=== PATIENT | female | born 1975 | race Hispanic/Latino ===

== ENCOUNTER 2017-12-03 13:28 | Observation (INO) | payer OTHER ==
[2017-12-03 14:02] LABS: Absolute Lymphocytes (CBC) 2.4 K/uL (0.7-4.9); Absolute Monocytes 0.7 K/uL (0.1-1.3); Absolute Neutrophil 7.2 K/uL (1.8-8.0); Basophils % 0.4 % (0-1.3); Eosinophils % 0.8 % (0-4.4); Lymphocytes % 23.3 % (15.3-44.8); MCH 29.7 pg (27.0-35.0); MPV 10.8 fL (7.6-11.3); Monocytes % 6.5 % (3.3-12.3); RBC Red Blood Cell Count 4.35 M/uL (3.86-4.86)
[2017-12-03] MEDS ORDERED: NITROGLYCERIN 1 GM PKT TD ONE (14:07)
[2017-12-03] MEDS ORDERED: ASPIRIN 81 MG CHEWABLE TABLET ONE (14:07)
[2017-12-03 14:10] LABS: Protime INR 1.03
[2017-12-03 14:15] LABS: Bicarbonate 26 mEq/L (21-31); Glucose Level 115 mg/dL (65-120); Potassium 3.3 mEq/L (3.6-5.0); Sodium Level 137 mEq/L (135-145)
--- NOTE | 2017-12-03 14:19 | RAD REPORT ---
EXAM DESCRIPTION: Fabiola Single View12/03/2017 2:13 pm CLINICAL HISTORY: Chest pain COMPARISON: January 2017 FINDINGS: The lungs appear clear of acute infiltrate. The heart is normal size IMPRESSION: No acute abnormalities displayed
[2017-12-03 14:21] LABS: ALT/SGPT 18 IU/L (10-60); AST/SGOT 21 IU/L (10-42); Albumin 4.5 g/dL (3.2-5.5); Alkaline Phosphatase 60 IU/L (42-121); BUN Blood Urea Nitrogen 14 mg/dL (6-20); Bilirubin Direct 0.1 mg/dL (0-0.2); Bilirubin Total 0.6 mg/dL (0.3-1.2); Creatine Phosphokinase 68 IU/L (22-269); Magnesium 1.9 mg/dL (1.8-2.5); Protein, Total 7.7 g/dL (6.0-8.3)
[2017-12-03] MEDS ORDERED: POTASSIUM CL SA 10 MEQ TAB PO ONE (15:25)
--- NOTE | 2017-12-03 15:30 | EKG ---
Test Date: 2017-12-03 Test Time: 14:05:04 Electric Detector Operator: ARACELI MEASUREMENT RESULTS: Intervals: Rate: 74 ND: 144 QRSD: 94 QT: 372 QTc: 412 [place]: P: 73 ND: 144 QRS: 57 T: 28 INTERPRETIVE STATEMENTS: Normal sinus rhythm T wave abnormality, consider anterior ischemia Abnormal ECG Compared to ECG 05/21/2013 12:16:53 Possible ischemia now present T-wave abnormality still present Electronically Signed On 12-03-17 15:29:56 CDT by Stanford Mcgee
--- NOTE | 2017-12-03 16:30 | ER ---
Nurse's Notes [facility] Name: Amie Reyna Age: 42 yrs Sex: Female : 1975 Arrival Date: 12/03/2017 Time: 13:29 Bed 15 Private MD: Jorge Duke C Diagnosis: Acute chest pain Presentation: 12/03 13:37 Presenting complaint: Patient states: my chest started hurting around 10 am today, its hj like a sharp, stabbing pain on my chest that moves to my L shoulder and arms; denies SOB, denies fever and chills;. Transition of care: patient was not received from another setting of care. Onset of symptoms was December 03, 2017 at 10:00. Care prior to arrival: None. 13:37 Method Of Arrival: Ambulatory hj 13:37 Acuity: FRENCH 3 hj Triage Assessment: 13:39 General: Appears in no apparent distress. uncomfortable, Behavior is calm, cooperative, hj appropriate for age. Pain: Complains of pain in chest Pain radiates to anterior aspect of left shoulder and left bicep Pain currently is 6 out of 10 on a pain scale. Quality of pain is described as sharp, stabbing, Pain began 3 hours ago. Cardiovascular: Capillary refill < 3 seconds Patient's skin is warm and dry. 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 - Social history:: Smoking status: Patient/guardian denies using tobacco, Patient/guardian denies using alcohol. Screenin:39 Abuse screen: Denies threats or abuse. Denies injuries from another. Nutritional hj screening: No deficits noted. Tuberculosis screening: No symptoms or risk factors identified. Fall Risk None identified. Assessment: 14:30 General: Appears in no apparent distress. comfortable, Behavior is calm, cooperative, aj1 appropriate for age. Pain: Complains of pain in chest Pain radiates to left arm and anterior aspect of left shoulder Pain currently is 6 out of 10 on a pain scale. Quality of pain is described as sharp, stabbing, Pain began at 10:00 this morning. Neuro: Level of Consciousness is awake, alert, obeys commands, Oriented to person, place, time, situation, Speech is normal, Facial symmetry appears normal. Cardiovascular: Heart tones S1 S2 present Patient's skin is warm and dry. Rhythm is regular Chest pain is described as Pain is 6 out of 10 on a pain scale. quality is sharp, stabbing, is located in chest wall. Respiratory: Airway is patent Respiratory effort is even, unlabored, Respiratory pattern is regular, symmetrical, Breath sounds are clear bilaterally. GI: No signs and/or symptoms were reported involving the gastrointestinal system. : No signs and/or symptoms were reported regarding the genitourinary system. EENT: No signs and/or symptoms were reported regarding the EENT system. Derm: No signs and/or symptoms reported regarding the dermatologic system. Skin is pink, warm \T\ dry. normal. Musculoskeletal: No signs and/or symptoms reported regarding the musculoskeletal system. Circulation, motion, and sensation intact. 15:14 Reassessment: Patient appears in no apparent distress at this time. No changes from aj1 previously documented assessment. Patient and/or family updated on plan of care and expected duration. Pain level reassessed. Patient is alert, oriented x 3, equal unlabored respirations, skin warm/dry/pink. 16:15 Reassessment: Patient appears in no apparent distress at this time. No changes from aj1 previously documented assessment. Patient and/or family updated on plan of care and expected duration. Pain level reassessed. Patient is alert, oriented x 3, equal unlabored respirations, skin warm/dry/pink. 17:05 Reassessment: Patient appears in no apparent distress at this time. No changes from aj1 previously documented assessment. Patient and/or family updated on plan of care and expected duration. Pain level reassessed. Patient is alert, oriented x 3, equal unlabored respirations, skin warm/dry/pink. 18:34 Reassessment: Patient appears in no apparent distress at this time. No changes from aj1 previously documented assessment. Patient and/or family updated on plan of care and expected duration. Pain level reassessed. Patient is alert, oriented x 3, equal unlabored respirations, skin warm/dry/pink. 19:57 Reassessment: Patient and/or family updated on plan of care and expected duration. Pain aj1 level reassessed. Receiving nurse unable to take report per charge nurse, states receiving nurse will call back. General: Appears in no apparent distress. comfortable, Behavior is calm, cooperative, appropriate for age. Neuro: Level of Consciousness is awake, alert, obeys commands, Oriented to person, place, time, situation, Speech is normal, Facial symmetry appears normal. Cardiovascular: Patient's skin is warm and dry. Respiratory: Airway is patent Respiratory effort is even, unlabored, Respiratory pattern is regular, symmetrical. GI: No signs and/or symptoms were reported involving the gastrointestinal system. : No signs and/or symptoms were reported regarding the genitourinary system. Derm: No signs and/or symptoms reported regarding the dermatologic system. Skin is pink, warm \T\ dry. normal. Musculoskeletal: No signs and/or symptoms reported regarding the musculoskeletal system. Circulation, motion, and sensation intact. 20:38 Reassessment: Patient appears in no apparent distress at this time. No changes from aj1 previously documented assessment. Patient and/or family updated on plan of care and expected duration. Pain level reassessed. Patient is alert, oriented x 3, equal unlabored respirations, skin warm/dry/pink. Vital Signs: 13:40 BP 128 / 71; Pulse 73; Resp 18; Temp 98.5(O); Pulse Ox 100% on R/A; Weight 62.14 kg; hj Height 5 ft. 4 in. (162.56 cm); Pain 6/10; 14:30 BP 134 / 89; Pulse 91; Resp 18; Pulse Ox 100% ; aj1 15:14 BP 114 / 64; Pulse 72; Resp 18; Pulse Ox 99% ; aj1 17:06 BP 122 / 67; Pulse 74; Resp 18; Pulse Ox 100% on R/A; aj1 19:57 BP 118 / 74; Pulse 76; Resp 18; Temp 98.1(O); Pulse Ox 100% on R/A; aj1 20:38 BP 109 / 74; Pulse 77; Resp 18; Pulse Ox 100% on R/A; aj1 13:40 Body Mass Index 23.52 (62.14 kg, 162.56 cm) ED Course: 13:29 Patient arrived in ED. as 13:29 Jorge Duke MD is Private Physician. as 13:36 Daryl Powell RN is Primary Nurse. hj 13:36 Eric Ortiz MD is Attending Physician. wa 13:38 Triage completed. hj 13:40 Arm band placed on right wrist. hj 13:40 Patient has correct armband on for positive identification. Bed in low position. Call hj light in reach. Side rails up X 1. Adult w/ patient. phototypesetting equipment monitor on. Pulse ox on. NIBP on. 13:40 Patient maintains SpO2 saturation greater than 95% on room air. hj 14:11 X-ray completed. Portable x-ray completed in exam room. Patient tolerated procedure la2 well. 14:12 XRAY Chest (1 view) In Process Unspecified. EDMS 14:22 EKG done, by central processing tech. reviewed by Eric Ortiz MD. at1 14:30 No provider procedures requiring assistance completed. aj1 15:30 Urine collected: clean catch specimen, blood tinged. formerly [facility], [facility] 16:29 Jorge Duke MD is Hospitalizing Provider. wa 19:00 Inserted saline lock: 20 gauge in left antecubital area, using aseptic technique. aj1 20:39 Patient admitted, IV remains in place. aj1 Administered Medications: 14:38 Drug: Aspirin Chewable Tablet 324 mg Route: PO; aj1 20:42 Follow up: Response: No adverse reaction aj1 14:38 Not Given (Patient Refused): Nitro-Bid Ointment 2 % 0.5 inches Transdermal once aj1 15:35 Drug: Potassium Chloride 40 mEq Route: PO; aj1 20:42 Follow up: Response: No adverse reaction aj1 Outcome: 16:30 Decision to Hospitalize by Provider. wa 20:39 Admitted to Tele accompanied by tech, via wheelchair, Report called to Lily aj1 20:39 Condition: good 20:39 Discharge instructions given to patient, Instructed on the need for admit, Demonstrated understanding of instructions. 21:04 Patient left the ED. aj1 Signatures: Dispatcher [employer] EDMS Kerry Beltran, RN RN Arcelia Hoffman Amanda, senior associate EKG Tat1 Daryl Powell, RN RN екатерина Muñoz, Irish dh3 Eric Ortiz MD MD mo Wendy Vargas la2
--- NOTE | 2017-12-03 16:30 | EDPHYS ---
Physician Documentation [facility] Name: Amie Reyna Age: 42 yrs Sex: Female : 1975 Arrival Date: 12/03/2017 Time: 13:29 Bed 15 Private MD: Jorge Duke C ED Physician Eric Ortiz HPI: 12/03 14:18 This 42 yrs old Female presents to ER via Ambulatory with complaints of Chest wa Pain, Arm Pain, Weakness. 14:18 The patient or guardian reports chest pain that is located primarily in the substernal wa area. Onset: this morning. The pain radiates to the left arm, left jaw. Associated signs and symptoms: Pertinent positives: dizziness, shortness of breath, feeling tired. 14:30 The chest pain is described as sharp. Duration: The patient or guardian reports wa multiple episodes, that wax and wane, with the last episode occurring 5 minute(s) ago. Modifying factors: The symptoms are alleviated by nothing. the symptoms are aggravated by nothing. Severity of pain: At its worst the pain was moderate in the emergency department the pain is unchanged. The patient has not experienced similar symptoms in the past. The patient has not recently seen a physician. 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 - Social history:: Smoking status: Patient/guardian denies using tobacco, Patient/guardian denies using alcohol. ROS: 14:30 Constitutional: Negative for fever, chills, and weight loss, Eyes: Negative for injury, wa pain, redness, and discharge, ENT: Negative for injury, pain, and discharge, Neck: Negative for injury, pain, and swelling, Abdomen/GI: Negative for abdominal pain, nausea, vomiting, diarrhea, and constipation, Back: Negative for injury and pain, : Negative for injury, bleeding, discharge, and swelling, MS/Extremity: Negative for injury and deformity, Skin: Negative for injury, rash, and discoloration, Neuro: Negative for headache, weakness, numbness, tingling, and seizure, Psych: Negative for depression, anxiety, suicide ideation, homicidal ideation, and hallucinations. 14:30 Cardiovascular: Positive for chest pain, Negative for edema, orthopnea, palpitations, paroxysmal nocturnal dyspnea. 14:30 Respiratory: Positive for shortness of breath, at rest. Negative for cough, pleurisy, wheezing. 14:30 All other systems are negative. Exam: 14:31 Constitutional: This is a well developed, well nourished patient who is awake, alert, wa and in no acute distress. Head/Face: Normocephalic, atraumatic. Eyes: Pupils equal round and reactive to light, extra-ocular motions intact. Lids and lashes normal. Conjunctiva and sclera are non-icteric and not injected. Cornea within normal limits. Periorbital areas with no swelling, redness, or edema. ENT: Nares patent. No nasal discharge, no septal abnormalities noted. Tympanic membranes are normal and external auditory canals are clear. Oropharynx with no redness, swelling, or masses, exudates, or evidence of obstruction, uvula midline. Mucous membranes moist. Neck: Trachea midline, no thyromegaly or masses palpated, and no cervical lymphadenopathy. Supple, full range of motion without nuchal rigidity, or vertebral point tenderness. No Meningismus. Chest/axilla: Normal chest wall appearance and motion. Nontender with no deformity. No lesions are appreciated. Abdomen/GI: Soft, non-tender, with normal bowel sounds. No distension or tympany. No guarding or rebound. No evidence of tenderness throughout. Back: No spinal tenderness. No costovertebral tenderness. Full range of motion. Skin: Warm, dry with normal turgor. Normal color with no rashes, no lesions, and no evidence of cellulitis. MS/ Extremity: Pulses equal, no cyanosis. Neurovascular intact. Full, normal range of motion. Neuro: Awake and alert, GCS 15, oriented to person, place, time, and situation. Cranial nerves II-XII grossly intact. Motor strength 5/5 in all extremities. Sensory grossly intact. Cerebellar exam normal. Normal gait. Psych: Awake, alert, with orientation to person, place and time. Behavior, mood, and affect are within normal limits. 14:31 Cardiovascular: Rate: normal, Rhythm: regular, Pulses: no pulse deficits are appreciated, Heart sounds: normal, Edema: is not appreciated, JVD: is not appreciated. Vital Signs: 13:40 BP 128 / 71; Pulse 73; Resp 18; Temp 98.5(O); Pulse Ox 100% on R/A; Weight 62.14 kg; hj Height 5 ft. 4 in. (162.56 cm); Pain 6/10; 14:30 BP 134 / 89; Pulse 91; Resp 18; Pulse Ox 100% ; aj1 15:14 BP 114 / 64; Pulse 72; Resp 18; Pulse Ox 99% ; aj1 17:06 BP 122 / 67; Pulse 74; Resp 18; Pulse Ox 100% on R/A; aj1 19:57 BP 118 / 74; Pulse 76; Resp 18; Temp 98.1(O); Pulse Ox 100% on R/A; aj1 20:38 BP 109 / 74; Pulse 77; Resp 18; Pulse Ox 100% on R/A; aj1 13:40 Body Mass Index 23.52 (62.14 kg, 162.56 cm) hj MDM: 13:36 Patient medically screened. ga 14:32 Differential diagnosis: acute myocardial infarction, anxiety, coronary artery disease wa congestive heart failure unstable angina. 15:12 Data reviewed: vital signs, nurses notes, lab test result(s), EKG, radiologic studies. ga Test interpretation: by ED physician or midlevel provider: EKG: HR 74. flipped T's noted in V1 and V2. no noted reciprocal changes. 15:25 Test interpretation: by ED physician or midlevel provider: nml CXR. nml labs, including ga troponin. 16:27 HEART Score: History: Highly Suspicious (2), ECG: Non specific repolarization wa disturbance / LBTB / PM (1), Age: < or = 45 years (0), Risk Factors: No Risk Factors Known (0), Troponin: < or = 1 x Normal Limit (0), Total Score =. Response to treatment: the patient's symptoms have markedly improved after treatment, pt improved with nitro and ASA. Physician consultation: A Srikanth LARRY. Admission orders: after a detailed discussion of the patient's condition and case, the admit orders are written by me. ED course: improved. concerning story with abnl EKG. will admit for obs and r/o ACS. 12/03 13:50 Order name: Basic Metabolic Panel; Complete Time: 14:23 12/03 13:50 Order name: CBC with Diff; Complete Time: 14:23 12/03 13:50 Order name: CPK; Complete Time: 14:23 12/03 13:50 Order name: LFT's; Complete Time: 14:23 12/03 13:50 Order name: Magnesium; Complete Time: 14:23 12/03 13:50 Order name: PT-INR; Complete Time: 14:23 12/03 13:50 Order name: Troponin (emerg Dept Use Only); Complete Time: 14:23 12/03 15:49 Order name: Urine Dipstick--Ancillary (enter results) ag 12/03 15:49 Order name: Urine --Ancillary (enter results) ag 12/03 18:20 Order name: Basic Metabolic Panel EDMS 12/03 18:20 Order name: Basic Metabolic Panel EDMS 12/03 18:20 Order name: CBC with Automated Diff EDMS 12/03 18:20 Order name: CBC with Automated Diff EDMS 12/03 18:20 Order name: Troponin I EDMS 12/03 13:50 Order name: Urine Test (obtain specimen); Complete Time: 15:35 12/03 13:50 Order name: XRAY Chest (1 view); Complete Time: 14:20 12/03 14:23 Interpretation: Abnormal. 12/03 13:50 Order name: EKG; Complete Time: 13:50 12/03 13:50 Order name: Cardiac monitoring; Complete Time: 13:58 12/03 13:50 Order name: EKG - Nurse/Tech; Complete Time: 15:35 12/03 13:50 Order name: IV Saline Lock; Complete Time: 20:43 12/03 13:50 Order name: Labs collected and sent; Complete Time: 13:58 12/03 18:20 Order name: EKG Electrocardiogram EDMS 12/03 18:20 Order name: EKG Electrocardiogram EDMS 12/03 18:20 Order name: EKG Electrocardiogram EDMS 12/03 18:20 Order name: EKG Electrocardiogram EDMS 12/03 18:20 Order name: Troponin I EDMS 12/03 18:20 Order name: Troponin I EDMS 12/03 13:50 Order name: O2 Per Protocol; Complete Time: 13:59 12/03 13:50 Order name: O2 Sat Monitoring; Complete Time: 13:59 ga 12/03 13:50 Order name: Urine Dipstick-Ancillary (obtain specimen); Complete Time: 15:35 Administered Medications: 14:38 Drug: Aspirin Chewable Tablet 324 mg Route: PO; aj 20:42 Follow up: Response: No adverse reaction aj 14:38 Not Given (Patient Refused): Nitro-Bid Ointment 2 % 0.5 inches Transdermal once aj 15:35 Drug: Potassium Chloride 40 mEq Route: PO; aj1 20:42 Follow up: Response: No adverse reaction aj Disposition: 12/03/17 16:30 Hospitalization ordered by Jorge Duke for Observation. Preliminary diagnosis is Acute chest pain. - Bed requested for Telemetry/MedSurg (observation). - Status is Observation. aj1 - Condition is Stable. - Problem is new. - Symptoms have improved. UTI on Admission? No Signatures: Dispatcher [employer] EDKerry Pablo RN RN [facility] Sofiya Matos RN RN Daryl Powell RN RN Eric Ortiz MD MD ga
[2017-12-03 16:32] LABS: Urine Blood 3+ (NEG); Urine Glucose NEGATIVE (NEG); Urine Protein NEGATIVE (NEG); Urine Specific Gravity 1.015 (1.005-1.030)
[2017-12-03] MEDS ORDERED: ACETAMINOPHEN 500 MG TAB PO PRN (18:19)
[2017-12-03 21:12] VITALS: BMI 23.3
[2017-12-03 21:59] VITALS: O2SAT 99
--- NOTE | 2017-12-04 03:22 | HP ---
Date of Admission: 12/03/2017 Chief Complaint: Chest pain. History Of Present Illness: This is a 42-year-old female patient, who has been under lot of stress, lately came into emergency room with complaints of chest pain. The patient was driving today. All o f a sudden, she started to have this intermittent chest pain in the left precordial region. The pain started to radiate to her left shoulder, associated with some tingling sensation of the finger and s he was feeling weak with this. After she came into the ER, she was evaluated and admitted to the [facility] under my service and I saw her in the emergency room. The patient had multiple episodes of thi s pain lasting for short time as she described. No fever, cough, cold, or congestion. No hemoptysis . No rash. No fall. No injury. I saw her in the emergency room. Her was present with her at bedside. Allergies: SHE IS LISTED ALLERGIC TO CODEINE. Medications: Does not take any medications at home. Review of Systems: Cardiovascular: As mentioned above. All other systems reviewed and negative. Past Medical History: Significant for hypothyroidism, impaired fasting glucose, fatigue, and general ized anxiety disorder. Past Surgical History: Tubal ligation and . Family History: Significant for hepatitis C and thyroid disorder. Social History: Negative for smoking or alcohol use. Physical Examination: Vital Signs: When she came into the emergency room, temperature 98.4, pulse 73, respiratory rate 18, blood pressure 128/71, oxygen saturation 100%. Height 5 feet 4 inches. Weight 136 pounds. General: Awake, alert, oriented, not in distress. HEENT: Head atraumatic, normocephalic. Conjunctivae nonerythematous. Sclerae white. Mouth, no thr ush or edema noted. Ears/Nose, no mass, lesion, discharge noted. Neck: Supple. No JVD, lymph nodes, bruit, thyromegaly noted. Lungs: Bilateral good equal air entry. Clear to auscultation. No rhonchi. No rales. Heart: Normal heart sounds, no murmur or gallop. Abdomen: Soft, bowel sounds normal. No guarding, rigidity, tenderness, mass, hepatosplenomegaly, dis tention, or bruit noted. Extremities: No leg edema. No calf tenderness. Skin: No rash, ulcer, cellulitis. Lymphatics: No lymph node enlargement in neck, supraclavicular, infraclavicular region. Neuro: No focal neurological deficit. Chest: Unremarkable. External Genitalia: Deferred. Rectal: Deferred. Laboratory Data: White count 10.4, hemoglobin 12.9, platelets 263. INR 1.03. Sodium 137, potassium 3.3 chloride 106, bicarb 26. BUN 14, creatinine 0.70, glucose 115. Liver function tests unremarkab le. Troponin less than 0.03. Urinalysis; 3+ blood, otherwise negative. Urine test negati ve. Diagnostic Data: Electrocardiogram; normal sinus rhythm, T-wave abnormality, consider anterior ische charlette. Chest x-ray, no acute abnormality. Impression: 1.Chest pain. 2.Hypokalemia. 3.Generalized anxiety disorder. 4.Hypothyroidism. Plan: We will admit the patient to hospital to telemetry for observation. Cardiac enzymes negative. Her pain is concerning enough that we will go ahead and order echocardiogram and stress test tomorr ow. I will see her tomorrow morning for followup. We will keep her on equipment monitor phototypesetting, get a TSH, B12, and folic acid level. I did prescribe her duloxetine from the office from the office earlier t his year and she says she stopped taking it because of side effect, so if cardiac workup comes back n egative, she is willing to try some other medication for anxiety and stress. We will consider medication like paroxetine. ARANZA/MODL Voice ID: [id number]
[2017-12-04 04:26] LABS: Absolute Lymphocytes (CBC) 2.9 K/uL (0.7-4.9); Absolute Monocytes 0.9 K/uL (0.1-1.3); Absolute Neutrophil 4.5 K/uL (1.8-8.0); Basophils % 0.2 % (0-1.3); Eosinophils % 1.3 % (0-4.4); Hematocrit 36.8 % (36.0-45.0); Lymphocytes % 34.8 % (15.3-44.8); MCH 30.2 pg (27.0-35.0); MCV 92.4 fL (80-100); MPV 11.2 fL (7.6-11.3); Monocytes % 10.5 % (3.3-12.3); RBC Red Blood Cell Count 3.98 M/uL (3.86-4.86)
[2017-12-04 05:08] LABS: BUN Blood Urea Nitrogen 15 mg/dL (6-20); Glucose Level 99 mg/dL (65-120); Thyroid Stimulating Hormone 3.86 uIU/mL (0.34-5.60)
[2017-12-04 05:20] LABS: Bicarbonate 24 mEq/L (21-31); Potassium 4.1 mEq/L (3.6-5.0); Sodium Level 138 mEq/L (135-145)
[2017-12-04] MEDS ORDERED: REGADENOSON 0.4 MG/5 ML SYR IV ONE (07:25)
[2017-12-04 08:25] VITALS: BP 95/62; TEMP 97.6
[2017-12-04] MEDS ORDERED: ASPIRIN EC 81 MG TAB PO SCH (09:00)
--- NOTE | 2017-12-04 12:25 | ECHO ---
HEIGHT: 5 ft 4 in WEIGHT: 136 lb 0 oz DATE OF STUDY: 12/04/[address]: Rey Duke MD 2-DIMENSIONAL: YES M.MODE: YES DOPPLER: YES COLOR FLOW: YES TDS: PORTABLE: DEFINITY: BUBBLE STUDY: DIAGNOSIS: CHEST PAIN CARDIAC HISTORY: CATHERIZATION: NO SURGERY: NO PROSTHETIC VALVE: NO PACEMAKER: NO MEASUREMENTS (cm) DIASTOLIC (NORMALS) SYSTOLIC (NORMALS) IVSd 0.7 (0.6-1.2) LA Diam 2.2 (1.9-4.0) LVEF 74% LVIDd 4.2 (3.5-5.7) LVIDs 2.4 (2.0-3.5) %FS 42% LVPWd 0.6 (0.6-1.2) Ao Diam 2.2 (2.0-3.7) 2 DIMENSIONAL ASSESSMENT: RIGHT ATRIUM: NORMAL LEFT ATRIUM: NORMAL RIGHT VENTRICLE: NORMAL LEFT VENTRICLE: NORMAL TRICUSPID VALVE: NORMAL MITRAL VALVE: NORMAL PULMONIC VALVE: NORMAL AORTIC VALVE: NORMAL PERICARDIAL EFFUSION: NONE AORTIC ROOT: NORMAL LEFT VENTRICULAR WALL MOTION: NORMAL DOPPLER/COLOR FLOW: NORMAL COMMENTS: NORMAL 2-DIMENSIONAL ECHOCARDIOGRAM WITH DOPPLER. TECHNOLOGIST: KENNETH TUCKER
--- NOTE | 2017-12-04 12:35 | TREADPHA ---
DX: CHEST PAIN Date of Study: 12/04/2017 Ht: 5' 4 " Wt: 136 lb 0 oz Consulting Physician: PRABHA MEDICATIONS: TYLENOL, ASPIRIN HISTORY: 42 YEAR OLD WITH COMPLAINTS OF CHEST PAIN MEDICAL HISTORY: NONE PHYSICIAL EXAMINATION: RESTING B.P.: 114/80 RESTING H.R.: 77 RESTING EKG: SINUS, BORDERLINE VOLTAGE FOR LEFT VENTRICULAR HYPERTROPHY. NON-SPECIFIC T WAVE ABNORMALITY. PROTOCOL: LEXISCAN EXERCISE TIME: 3:30 B.P. AT PEAK STRESS: 118/68 IMPRESSION: LEXISCAN INJECTION FRACTION. CARDIOLITE INJECTED PER PROTOCOL. SEE NUCLEAR MEDICINE REPORT. NO VENTRICULAR TACHYCARDIA. NO SUPRAVENTRICUALR TACHYCARDIA. NO PREMATURE VENTRICULAR COMPLEXES. NO CHEST PAIN. NON-DIAGNOSTIC ELECTROCARDIAGRAM WITH LEXISCAN STRESS.
--- NOTE | 2017-12-04 13:13 | RAD REPORT ---
EXAM DESCRIPTION: NM - Rest Stress Cardiac Imaging - 12/04/2017 12:53 pm CLINICAL HISTORY: Chest pain COMPARISON: None. TECHNIQUE: The patient was administered 10.7 mCi of Tc 99m Sestamibi prior to resting SPECT imaging of the heart. The patient was then administered 27.7 mCi of Tc 99m Sestamibi following exercise or ph armacologic stress. Multiplanar SPECT images were reviewed. FINDINGS: The end diastolic volume is 49 ml, the end systolic volume is 14 ml, and the ejection frac tion is 71 %. Physiologic distribution of the radiopharmaceutical through the myocardium is noted. No stress induce d ischemic defect is seen to suggest stress induced ischemia. No fixed defect is seen to suggest hibe rnating myocardium or scarred myocardium. IMPRESSION: No stress induced ischemia or other suspicious findings. Ventricular volumes and ejection fraction are normal range.
--- NOTE | 2017-12-05 01:11 | DS ---
Date of Discharge: 12/04/2017 Disposition: Discharged to go home. Physical Examination: HEENT: Unremarkable. Lungs: Clear to auscultation. Heart: Sounds normal. Abdomen: Soft, bowel sounds normal. No guarding, rigidity, tenderness, or distention. Extremities: No leg edema. Discharge Medications And Instructions: Start taking paroxetine 10 mg p.o. daily. Followup: She will follow up at my office in 1 month. Hospital Course: A 42-year-old pleasant female patient, admitted to the hospital with complaints of chest pain. Please see dictated H and P for more information. After the patient was evaluated in the ER, she was admitted to the hospital. She had pain in her lef t precordial region radiating to her left arm and left shoulder. This started yesterday while she wa s driving. After she was evaluated, she was admitted to the hospital. Her CBC and chemistry were un remarkable. Cardiac enzymes remained negative. ND was ruled out. She had an echocardiogram done to day which was normal. Lexiscan stress test came back negative for stress-induced ischemia. This mor betty when I saw her, she was feeling better. Had no complaints. No chest pain. The patient has bee n under lot of stress and we did talk about trying some medication. She was prescribed duloxetine li ttle over a month ago. She stopped taking it because she had side effect of nausea and dizziness, bu t she is willing to try something else to help deal with her stress. We will try paroxetine and see how she tolerates. She was advised to take it in the morning with breakfast. Final Diagnoses: 1.Chest pain. 2.Hypokalemia. 3.Generalized anxiety disorder. 4.Hypothyroidism. ARANZA/MODL Voice ID: [id number] Report ID: [id number]
== END 2017-12-04 14:26 | disposition home or self-care (01) ==
LOC: ER 13:28 → ERHOLD 18:18 → 4TH 20:39
PROVIDERS: ADMIT Internal Medicine; ATTEND Internal Medicine
DX: R07.9 Chest pain, unspecified (principal); E87.6 Hypokalemia; E03.9 Hypothyroidism, unspecified; F41.1 Generalized anxiety disorder
CPT/HCPCS: 36415; 71045; 78452; 80048; 80076; 81003; 81025; 82550; 82607; 82746; 83735; 84443; 84484; 85025; 85610; 93005; 93017; 93306; 99285; A9500; G0378; J2785

== ENCOUNTER 2019-01-15 18:33 | Emergency (ER) | payer OTHER ==
[2019-01-15 19:18] LABS: Absolute Lymphocytes (CBC) 2.8 K/uL (0.7-4.9); Absolute Monocytes 0.9 K/uL (0.1-1.3); Absolute Neutrophil 3.9 K/uL (1.8-8.0); Basophils % 0.3 % (0-1.3); Eosinophils % 1.6 % (0-4.4); Lymphocytes % 36.3 % (15.3-44.8); MPV 10.8 fL (7.6-11.3); RBC Red Blood Cell Count 4.06 M/uL (3.86-4.86)
[2019-01-15 19:19] LABS: Protime INR 1.01
--- NOTE | 2019-01-15 19:26 | RAD REPORT ---
EXAM DESCRIPTION: RAD - Chest Single View - 01/15/2019 7:17 pm CLINICAL HISTORY: CHEST PAIN Chest pain. COMPARISON: Chest Single View dated 12/03/2017; Chest Pa And Lat (2 Views) dated 02/07/2017; CHEST SIN GLE VIEW dated 05/21/2013; CHEST PA AND LAT 2 VIEW dated 06/08/2000 FINDINGS: Portable technique limits examination quality. The lungs are grossly clear. The heart is normal in size. No displaced fractures. IMPRESSION: No acute intrathoracic process suspected.
[2019-01-15] MEDS ORDERED: KETOROLAC 30 MG/ML INJ ONE (19:27)
[2019-01-15] MEDS ORDERED: ASPIRIN 81 MG CHEWABLE TABLET ONE (19:27)
[2019-01-15] MEDS ORDERED: NA CHLORIDE 0.9% 1,000 ML ONE (19:28)
[2019-01-15] MEDS ORDERED: FAMOTIDINE 20 MG/2 ML VIAL IV ONE (19:28)
[2019-01-15 19:36] LABS: ALT/SGPT 24 U/L (12-78); AST/SGOT 15 U/L (15-37); Albumin 3.8 g/dL (3.4-5.0); Alkaline Phosphatase 63 U/L (45-117); BUN Blood Urea Nitrogen 17 mg/dL (7-18); Bicarbonate 29 mmol/L (21-32); Bilirubin Direct < 0.1 mg/dL (0-0.2); Bilirubin Total 0.4 mg/dL (0.2-1.0); Glucose Level 94 mg/dL (74-106); Magnesium 2.3 mg/dL (1.8-2.4); NT PRO-BNP 14 pg/mL (<125); Potassium 3.8 mmol/L (3.5-5.1); Protein, Total 7.3 g/dL (6.4-8.2); Sodium Level 144 mmol/L (136-145); Troponin (Emerg Dept Use Only) < 0.02 ng/mL (0.0-0.045)
[2019-01-15 19:59] LABS: Urine Blood NEGATIVE (NEG); Urine Glucose NEGATIVE (NEG); Urine Protein TRACE (NEG); Urine pH 6.5 (5.0-7.0)
--- NOTE | 2019-01-15 22:28 | EDPHYS ---
Physician Documentation [facility] Name: Amie Reyna Age: 43 yrs Sex: Female : 1975 Arrival Date: 01/15/2019 Time: 18:36 Bed 16 Private MD: Rey Duke ED Physician Rao Ortiz HPI: 01/15 19:15 This 43 yrs old Female presents to ER via Ambulatory with complaints of Chest cp Pain. 19:15 The patient or guardian reports chest pain that is located primarily in the anterior cp chest wall, medial to left breast. 19:15 Onset: 3 day(s) ago. The pain does not radiate. Associated signs and symptoms: cp Pertinent negatives: abdominal pain, cough, diaphoresis, dizziness, headache, lower extremity pain, lower extremity swelling, recent travel, syncope. The chest pain is described as sharp. Duration: The patient or guardian reports multiple episodes, that wax and wane, with no pattern. 19:15 Modifying factors: the symptoms are aggravated by palpation of area. 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 - Social history:: Smoking status: Patient/guardian denies using tobacco. - Ebola Screening: : Patient denies exposure to infectious person Patient denies travel to an Ebola-affected area in the 21 days before illness onset. ROS: 19:20 Constitutional: Negative for body aches, chills, fever, poor PO intake. cp 19:20 Eyes: Negative for injury, pain, redness, and discharge. cp 19:20 ENT: Negative for drainage from ear(s), ear pain, sore throat, difficulty swallowing, difficulty handling secretions. 19:20 Cardiovascular: Positive for chest pain, Negative for edema, palpitations. 19:20 Respiratory: Negative for cough, shortness of breath, wheezing. 19:20 Abdomen/GI: Negative for abdominal pain, nausea, vomiting, and diarrhea. 19:20 Skin: Negative for cellulitis, rash. 19:20 Neuro: Negative for altered mental status, headache, weakness. 19:20 All other systems are negative. Exam: 19:11 ECG was reviewed by the Attending Physician. cp 19:25 Constitutional: The patient appears in no acute distress, alert, awake, cp non-diaphoretic, non-toxic, well developed, well nourished. 19:25 Head/Face: Normocephalic, atraumatic. cp 19:25 Eyes: Periorbital structures: appear normal, Conjunctiva: normal, no exudate, no injection, Sclera: no appreciated abnormality, Lids and lashes: appear normal, bilaterally. 19:25 ENT: External ear(s): are unremarkable, Nose: is normal, Mouth: Lips: moist, Oral mucosa: normal, moist, Posterior pharynx: is normal, airway is patent, no erythema, no exudate. 19:25 Neck: ROM/movement: is normal, is supple, without pain, no range of motions limitations, no nuchal rigidity. 19:25 Chest/axilla: Inspection: normal, Palpation: crepitus, is not appreciated, tenderness, that is moderate, of the medial aspect of chest to left breast, that partially reproduces the patient's complaints. 19:25 Cardiovascular: Rate: normal, Rhythm: regular, Pulses: Pulses are 2+ in right radial artery and left radial artery. Edema: is not appreciated, JVD: is not appreciated. 19:25 Respiratory: the patient does not display signs of respiratory distress, Respirations: labored breathing, is not present, accessory muscle usage, is absent, intercostal retractions, are absent, shallow respirations, are not present, splinting, is not noted, tachypnea, is not appreciated, Breath sounds: are clear throughout, no decreased breath sounds, no stridor, no wheezing. 19:25 Abdomen/GI: Inspection: abdomen appears normal, Bowel sounds: active, all quadrants, cp Palpation: abdomen is soft and non-tender. 19:25 Back: pain, is absent, ROM is normal. cp 19:25 Skin: cellulitis, is not appreciated, no rash present. 19:25 Neuro: Orientation: to person, place \T\ time. Mentation: is normal, Cerebellar function: is grossly normal, Motor: moves all fours, strength is normal, Sensation: is normal. 21:39 ECG was reviewed by the Attending Physician. cp Vital Signs: 18:42 Pulse 71; Resp 15; Temp 98.7(O); Pulse Ox 100% on R/A; Weight 63.5 kg; Height 5 ft. 4 ss in. (162.56 cm); Pain 6/10; 19:01 BP 109 / 65; tw2 19:10 BP 113 / 75; Pulse 69; Resp 14; Temp 98.6; Pulse Ox 99% on R/A; Pain 6/10; rr5 20:20 BP 116 / 70; Pulse 77; Resp 16; Temp 98.5; Pulse Ox 99% ; Pain 3/10; rr5 21:00 BP 107 / 67; Pulse 65; Resp 17; Pulse Ox 99% ; rr5 22:00 BP 110 / 63; Pulse 62; Resp 15; Pulse Ox 100% on R/A; rr5 22:40 BP 105 / 60; Pulse 60; Resp 16; Temp 98.3; Pulse Ox 99% on R/A; rr5 18:42 Body Mass Index 24.03 (63.50 kg, 162.56 cm) ss MDM: 18:55 Patient medically screened. cp 19:00 Differential diagnosis: abnormal EKG, acute myocardial infarction, acute pericarditis, cp chest wall pain, costochondritis, esophagitis, gastritis, pleurisy, pneumonia, pneumothorax, pulmonary embolus, stable angina, unstable angina. 22:20 The patient was given aspirin in the Emergency Department. cp 22:20 Data reviewed: vital signs, nurses notes, lab test result(s), EKG, radiologic studies, cp plain films. Test interpretation: by ED physician or midlevel provider: ECG, plain radiologic studies. 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 Response to treatment: the patient's symptoms have markedly improved after treatment, VSS. Pain improved with meds. Patient with HEART score of 0. Will discharge to home with outpatient cardiology f/u recommended. 01/15 18:57 Order name: Basic Metabolic Panel; Complete Time: 19:49 cp 01/15 19:48 Interpretation: Normal except: CL 109; GFR 80. cp 05/24 18:57 Order name: CBC with Diff; Complete Time: 19:49 cp 05/24 20:25 Interpretation: Normal except: RDW 16.5. cp 05/24 18:57 Order name: LFT's; Complete Time: 19:49 cp 05/24 18:57 Order name: Magnesium; Complete Time: 19:49 cp 05/24 18:57 Order name: NT PRO-BNP; Complete Time: 19:49 cp 05/24 18:57 Order name: PT-INR; Complete Time: 19:49 cp 05/24 18:57 Order name: Troponin (emerg Dept Use Only); Complete Time: 19:49 cp 05/24 19:49 Interpretation: Reviewed. cp 05/ 18:57 Order name: XRAY Chest (1 view); Complete Time: 19:49 cp 05/24 19:57 Order name: Urine Dipstick--Ancillary (enter results) ag4 / 19:57 Order name: Urine --Ancillary (enter results); Complete Time: 20:25 ag4 /24 21:25 Order name: Troponin (emerg Dept Use Only) cp 05/ 18:57 Order name: EKG; Complete Time: 18:57 cp 05/24 18:57 Order name: Cardiac monitoring; Complete Time: 18:57 cp 05/24 18:57 Order name: EKG - Nurse/Tech; Complete Time: 18:57 cp 05/24 18:57 Order name: IV Saline Lock; Complete Time: 19:45 cp 05/24 18:57 Order name: Labs collected and sent; Complete Time: 19:45 cp 05/24 18:57 Order name: O2 Per Protocol; Complete Time: 19:45 cp 05/24 18:57 Order name: O2 Sat Monitoring; Complete Time: 19:45 cp 05/24 19:09 Order name: Urine Dipstick-Ancillary (obtain specimen); Complete Time: 19:45 cp 05/24 19:09 Order name: Urine Test (obtain specimen); Complete Time: 19:45 cp 05/24 21:25 Order name: EKG - Nurse/Tech; Complete Time: 21:29 cp 05/24 21:25 Order name: EKG; Complete Time: 21:26 cp 05/24 21:25 Order name: Repeat Cardiac Enzymes at: 2145; Complete Time: 21:36 cp EC:11 Rate is 73 beats/min. Rhythm is regular. HI interval is normal. QRS interval is normal. cp QT interval is normal. T waves are Inverted in leads III, V3. Interpreted by me. Reviewed by me. 21:39 Rate is 67 beats/min. Rhythm is regular. HI interval is normal. QRS interval is normal. cp QT interval is normal. T waves are Inverted in lead III. Interpreted by me. Reviewed by me. Administered Medications: 19:10 Drug: Aspirin Chewable Tablet 324 mg Route: PO; rr5 20:15 Follow up: Response: No adverse reaction rr5 19:13 Drug: NS 0.9% 1000 ml Route: IV; Rate: 1 bolus; Site: left forearm; rr5 22:40 Follow up: Response: No adverse reaction; IV Status: Completed infusion; IV Intake: rr5 1000ml 19:15 Drug: Pepcid 20 mg Route: IVP; Site: left forearm; rr5 20:15 Follow up: Response: No adverse reaction rr5 19:44 Not Given (Patient Refused): TORadol - Ketorolac 15 mg IVP once rr5 Disposition: 01/15/19 22:26 Discharged to Home. Impression: Chest pain, unspecified. - Condition is Stable. - Discharge Instructions: Nonspecific Chest Pain, Aspirin and Your Heart. - Prescriptions for Ibuprofen 800 mg Oral Tablet - take 1 tablet by ORAL route every 8 hours As needed take with food; 30 tablet. Pepcid 20 mg Oral Tablet - take 1 tablet by ORAL route every 12 hours for 10 days; 20 tablet. - Medication Reconciliation Form, Thank You Letter, Antibiotic Education, Prescription Opioid Use form. - Follow up: Stanford Mcgee MD; When: 2 - 3 days; Reason: chest pain. - Problem is new. - Symptoms have improved. Addendum: 01/19/2019 08:45 Co-signature as Attending Physician, Rao Ortiz MD I agree with the assessment and c [place] plan of care. Signatures: Dispatcher [employer] Rao Feng MD MD cha Smirch, Shelby, RN RN Rao Jackson PA PA cp Roque, Raymond RN RN rr5 Corrections: (The following items were deleted from the chart) 01/15 22:44 22:26 01/15/2019 22:26 Discharged to Home. Impression: Chest pain, unspecified. rr5 Condition is Stable. Forms are Medication Reconciliation Form, Thank You Letter, Antibiotic Education, Prescription Opioid Use. Follow up: Stanford Mcgee; When: 2 - 3 days; Reason: chest pain. Problem is new. Symptoms have improved. cp
--- NOTE | 2019-01-15 22:28 | ER ---
Nurse's Notes [facility] Name: Amie Reyna Age: 43 yrs Sex: Female : 1975 Arrival Date: 01/15/2019 Time: 18:36 Bed 16 Private MD: Rey Duke Diagnosis: Chest pain, unspecified Presentation: 01/15 18:41 Presenting complaint: Patient states: intermittent CP x 2-3 days. Transition of care: ss patient was not received from another setting of care. Onset of symptoms was January 12, 2019. Risk Assessment: Do you want to hurt yourself or someone else? Patient reports no desire to harm self or others. Initial Sepsis Screen: Does the patient meet any 2 criteria? No. Patient's initial sepsis screen is negative. Does the patient have a suspected source of infection? No. Patient's initial sepsis screen is negative. Care prior to arrival: None. 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 - Social history:: Smoking status: Patient/guardian denies using tobacco. - Ebola Screening: : Patient denies exposure to infectious person Patient denies travel to an Ebola-affected area in the 21 days before illness onset. Screenin:01 Abuse screen: Denies threats or abuse. Nutritional screening: No deficits noted. tw2 Tuberculosis screening: No symptoms or risk factors identified. Fall Risk None identified. Assessment: 19:05 General: Appears in no apparent distress. comfortable, Behavior is calm, cooperative, rr5 agitated. Pain: Complains of pain in chest Pain does not radiate. Pain currently is 6 out of 10 on a pain scale. Quality of pain is described as sharp, Pain began gradually, Is intermittent. Neuro: Level of Consciousness is awake, alert, obeys commands, Oriented to person, place, time, situation, Appropriate for age. Cardiovascular: Reports chest pain, Capillary refill < 3 seconds Patient's skin is warm and dry. Respiratory: Airway is patent Respiratory effort is even, unlabored, Respiratory pattern is regular, symmetrical. GI: No signs and/or symptoms were reported involving the gastrointestinal system. : No signs and/or symptoms were reported regarding the genitourinary system. EENT: No signs and/or symptoms were reported regarding the EENT system. Derm: Skin is intact, Skin temperature is warm. Musculoskeletal: Circulation, motion, and sensation intact. Capillary refill < 3 seconds. 19:10 Reassessment: patient refused for pain medication. ED provider aware. rr5 20:20 Reassessment: Patient appears in no apparent distress at this time. Patient is alert, rr5 oriented x 3, equal unlabored respirations, skin warm/dry/pink. Patient states feeling better. Patient states symptoms have improved. 21:35 Reassessment: Patient appears in no apparent distress at this time. Patient and/or rr5 family updated on plan of care and expected duration. Pain level reassessed. Patient is alert, oriented x 3, equal unlabored respirations, skin warm/dry/pink. awaiting for D dimer result. 22:40 Reassessment: Patient appears in no apparent distress at this time. Patient is alert, rr5 oriented x 3, equal unlabored respirations, skin warm/dry/pink. discharge instruction given and explained without complaints made. Patient states feeling better. Patient states symptoms have improved. Vital Signs: 18:42 Pulse 71; Resp 15; Temp 98.7(O); Pulse Ox 100% on R/A; Weight 63.5 kg; Height 5 ft. 4 ss in. (162.56 cm); Pain 6/10; 19:01 BP 109 / 65; tw2 19:10 BP 113 / 75; Pulse 69; Resp 14; Temp 98.6; Pulse Ox 99% on R/A; Pain 6/10; rr5 20:20 BP 116 / 70; Pulse 77; Resp 16; Temp 98.5; Pulse Ox 99% ; Pain 3/10; rr5 21:00 BP 107 / 67; Pulse 65; Resp 17; Pulse Ox 99% ; rr5 22:00 BP 110 / 63; Pulse 62; Resp 15; Pulse Ox 100% on R/A; rr5 22:40 BP 105 / 60; Pulse 60; Resp 16; Temp 98.3; Pulse Ox 99% on R/A; rr5 18:42 Body Mass Index 24.03 (63.50 kg, 162.56 cm) ED Course: 18:36 Patient arrived in ED. mr 18:37 Rey Duke MD is Private Physician. mr 18:41 Triage completed. ss 18:42 Arm band placed on right wrist. ss 18:48 EKG completed in triage. Results shown to MD. tw2 18:53 Rao Montero PA is PHCP. cp 18:53 Rao Ortiz MD is Attending Physician. cp 18:56 EKG done, by ED staff, reviewed by Rao COTTO. dh3 19:02 Bed in low position. Call light in reach. cafeteria monitor on. Pulse ox on. NIBP on. tw2 19:03 Patient maintains SpO2 saturation greater than 95% on room air. tw2 19:05 Inserted saline lock: 20 gauge in left forearm, using aseptic technique. Blood rr5 collected. 19:05 No provider procedures requiring assistance completed. Initial lab(s) drawn, by ut, rr5 sent to lab. 19:11 Santino Kuhn, JER is Primary Nurse. rr5 19:19 XRAY Chest (1 view) In Process Unspecified. EDMS 21:30 EKG done, by electrical controls technician. rr5 21:44 IV discontinued, Pressure dressing applied. jb5 21:45 Inserted saline lock: 22 gauge in right antecubital area, using aseptic technique. jb5 Blood collected. 22:25 Stanford Mcgee MD is Referral Physician. cp 22:40 IV discontinued, intact, bleeding controlled, No redness/swelling at site. Pressure rr5 dressing applied. Administered Medications: 19:10 Drug: Aspirin Chewable Tablet 324 mg Route: PO; rr5 20:15 Follow up: Response: No adverse reaction rr5 19:13 Drug: NS 0.9% 1000 ml Route: IV; Rate: 1 bolus; Site: left forearm; rr5 22:40 Follow up: Response: No adverse reaction; IV Status: Completed infusion; IV Intake: rr5 1000ml 19:15 Drug: Pepcid 20 mg Route: IVP; Site: left forearm; rr5 20:15 Follow up: Response: No adverse reaction rr5 19:44 Not Given (Patient Refused): TORadol - Ketorolac 15 mg IVP once rr5 Intake: 22:40 IV: 1000ml; Total: 1000ml. rr5 Outcome: 22:26 Discharge ordered by . cp 22:40 Discharged to home ambulatory. rr5 22:40 Condition: stable 22:40 Discharge instructions given to patient, Instructed on discharge instructions, follow up and referral plans. Demonstrated understanding of instructions, follow-up care. 22:40 Prescriptions given X 2. rr5 22:44 Patient left the ED. rr5 Signatures: Dispatcher [employer] EDIA Andria Vilchis mr AlekViktoria, RN RN ss Rao Montero PA PA Liv Aldana RN RN tw2 Anai Lugo 5 Irish Muñoz 3 Santino Kuhn RN RN rr5 Corrections: (The following items were deleted from the chart) 23:09 22:40 Discharged to home ambulatory, credit or loans officer rr5 rr5
[2019-01-15 23:15] VITALS: TEMP 98.5
[2019-01-15 23:18] VITALS: BP 110/63; O2SAT 100
--- NOTE | 2019-01-16 08:11 | EKG ---
Test Date: 2019-01-15 Test Time: 21:34:34 Lead Injection Mold Technician: MARSHALL MEASUREMENT RESULTS: Intervals: Rate: 67 GA: 182 QRSD: 92 QT: 378 QTc: 399 [place]: P: 69 GA: 182 QRS: 41 T: 14 INTERPRETIVE STATEMENTS: Normal sinus rhythm RSR' or QR pattern in V1 suggests right ventricular conduction delay Borderline ECG Compared to ECG 01/15/2019 18:52:01 T-wave abnormality no longer present Electronically Signed On 01-16-19 08:10:06 CDT by Abhijit Martinez
--- NOTE | 2019-01-16 08:12 | EKG ---
Test Date: 2019-01-15 Test Time: 18:52:01 Insulator Cutter And Former: JAIME MEASUREMENT RESULTS: Intervals: Rate: 73 FL: 164 QRSD: 94 QT: 370 QTc: 407 [place]: P: 74 FL: 164 QRS: 59 T: 15 INTERPRETIVE STATEMENTS: Normal sinus rhythm RSR' or QR pattern in V1 suggests right ventricular conduction delay Nonspecific T wave abnormality Abnormal ECG Compared to ECG 12/03/2017 14:05:04 RSR' in V1 or V2 now present Possible ischemia no longer present T-wave abnormality still present Electronically Signed On 01-16-19 08:10:20 CDT by Abhijit Martinez
== END 2019-01-15 22:44 | disposition home or self-care (01) ==
LOC: ER 18:33
DX: R07.9 Chest pain, unspecified (principal); Z88.5 Allergy status to narcotic agent
CPT/HCPCS: 36415; 71045; 80048; 80076; 81003; 81025; 83735; 83880; 84484; 85025; 85610; 93005; 96361; 96374; 99285; J7030

== ENCOUNTER 2020-02-29 16:00 | Observation (INO) | payer OTHER ==
[2020-02-29 16:19] VITALS: BMI 26.4
[2020-02-29 17:21] LABS: Absolute Lymphocytes (CBC) 2.7 K/uL (0.7-4.9); Basophils % 0.5 % (0-1.3); Hematocrit 40.1 % (36.0-45.0); Lymphocytes % 26.4 % (15.3-44.8); MPV 10.3 fL (7.6-11.3); RBC Red Blood Cell Count 4.42 M/uL (3.86-4.86)
[2020-02-29 17:33] LABS: ALT/SGPT 27 U/L (12-78); AST/SGOT 19 U/L (15-37); Albumin 3.7 g/dL (3.4-5.0); Alkaline Phosphatase 75 U/L (45-117); BUN Blood Urea Nitrogen 14 mg/dL (7-18); Bicarbonate 25 mmol/L (21-32); Bilirubin Total 0.3 mg/dL (0.2-1.0); CKMB Creatine Kinase MB < 1.0 ng/mL (0.3-3.6); Creatine Phosphokinase 65 U/L (26-192); Glucose Level 91 mg/dL (74-106); Potassium 3.6 mmol/L (3.5-5.1); Protein, Total 7.6 g/dL (6.4-8.2); Sodium Level 141 mmol/L (136-145); Thyroid Stimulating Hormone 0.629 uIU/mL (0.360-3.740); Troponin I < 0.02 ng/mL (0.0-0.045)
--- NOTE | 2020-02-29 21:40 | RAD REPORT ---
EXAM DESCRIPTION: Fabiola Ward (2 Views)02/29/2020 9:10 pm CLINICAL HISTORY: Chest pain COMPARISON: 2019 FINDINGS: The lungs appear clear of acute infiltrate. The heart is normal size IMPRESSION: No acute abnormalities displayed
--- NOTE | 2020-02-29 23:19 | HP ---
Date of Admission: 02/29/2020 Chief Complaint: Chest pain and right arm pain. History Of Present Illness: This is a 45-year-old female patient who was doing fine in her normal usual state of health until a week ago. 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 Denies any cough or fever. As of last week on Friday, she started to have tiredness, feeling like heaviness, tightness feeling in her chest in the right parasternal region and some pain in her right arm. Her chest pain happened couple of times once yesterday and once on Friday other time she describes as some uncomfortable feeling in her chest. Last night, she says that she had hard time catching her breath. Her pain in her right arm is constant. Denies any fall or injury. Denies any neck pain. No rash. After I visited her on tele-visit today, decision was made to admit her to hospital for further evaluation and management of this problem. Review of Systems: Cardiovascular: As mentioned above. Musculoskeletal: As mentioned above. All other systems reviewed and negative. Medications: She does not take any medication. Allergies: NO KNOWN ALLERGIES. Past Medical History: Significant for hypothyroidism. Past Surgical History: and tubal ligation. Family History: Significant for brother with thyroid disease. Social History: Negative for smoking and alcohol use. Physical Examination: Vital Signs: Height 5 feet, 4 inches, weight 154 pounds, temperature 98.6, pulse 87, respiratory rate 18, blood pressure 112/59, oxygen saturation 98%. General: Awake, alert, oriented, not in distress. HEENT: Head atraumatic, normocephalic. Conjunctivae nonerythematous. Sclerae white. Mouth, no thrush or edema noted. Ears/Nose, no mass, lesion, discharge noted. Neck: Supple. No JVD, lymph nodes, bruit, thyromegaly noted. Lungs: Bilateral good equal air entry. Clear to auscultation. No rhonchi. No rales. Heart: Normal heart sounds, no murmur or gallop. Abdomen: Soft, bowel sounds normal. No guarding, rigidity, tenderness, mass, hepatosplenomegaly, distention, or bruit noted. Extremities: No leg edema. No calf tenderness. Skin: No rash, ulcer, cellulitis. Lymphatics: No lymph node enlargement in neck, supraclavicular, infraclavicular region. Neuro: No focal neurological deficit. Chest: Unremarkable. External Genitalia: Deferred. Rectal: Deferred. Laboratory Data: Chest x-ray no acute abnormality, sodium 141, potassium 3.6, chloride 108, bicarb 25, glucose 91, BUN 14, creatinine 0.72, liver function tests unremarkable, WBC 10.1, hemoglobin 13.2, platelets 275. Impression: Chest pain. Plan: Admit the patient to hospital for observation on telemetry. We will get cardiac enzymes per order. We will get echocardiogram and Lexiscan stress test tomorrow and details and plan of treatment discussed with the patient. COVID-19 test will be done today. ARANZA/PAKO Voice ID: [id number] MTDD
[2020-03-01] MEDS ORDERED: REGADENOSON 0.4 MG/5 ML SYR IV ONE (08:24)
[2020-03-01 08:49] LABS: HDL Cholesterol 46 mg/dL (40-60); LDL Cholesterol, Calculated 95 (<130); Troponin I < 0.02 ng/mL (0.0-0.045)
--- NOTE | 2020-03-01 11:39 | RAD REPORT ---
EXAM DESCRIPTION: NM - Rest Stress Cardiac Imaging - 03/01/2020 9:59 am CLINICAL HISTORY: Chest pain. COMPARISON: 2017 TECHNIQUE: The patient was administered 10.6 mCi of Tc 99m Sestamibi prior to resting SPECT imaging of the heart. The patient was then administered approximately 30.8 mCi of Tc 99m Sestamibi following exercise or pharmacologic stress. Multiplanar SPECT images were reviewed. FINDINGS: There is uniformity of radiotracer uptake involving the entire left ventricular myocardiu m on rest and stress images. The left ventricular ejection fraction equals 70% IMPRESSION: Negative for a myocardial perfusion defect
[2020-03-01 11:53] VITALS: BP 109/66; TEMP 97.4
--- NOTE | 2020-03-01 23:46 | DS ---
Date of Discharge: 03/01/2020 Disposition: Discharged to go home. Discharge Medications And Instructions: Motrin 400 mg 3 times a day with food for 1 week. Final Diagnosis: Chest pain. Physical Examination: HEENT: Unremarkable. Lungs: Clear to auscultation. Heart: Heart sounds normal. Abdomen: Soft, bowel sounds normal. No guarding, rigidity, tenderness, or distention. Extremities: No leg edema. Hospital Course: This is a 45-year-old female patient admitted to the hospital with complaints of ch est pain and right arm pain. Please see dictated H and P for more information. Patient was admitted to the hospital. After she was admitted, serial cardiac enzymes obtained remained negative. Her ro utine blood work was unremarkable. EKG did not show any acute changes. Chest x-ray was unremarkable . This morning, the patient had Lexiscan stress test done, which came back negative for any stress-i nduced ischemia. Echocardiogram was done result pending and I will follow this on outpatient basis. The patient, this morning, was feeling better. She still had some right arm pain and right paraster nal pain, but overall it was better compared to yesterday and no new complaints reported this morning , so patient was discharged to go home in stable condition. It is likely that her right-sided chest pain is musculoskeletal in origin and we will see how she responds to Motr in. ARANZA/MODL Voice ID: [id number] Report ID: [id number]
--- NOTE | 2020-03-02 08:42 | ECHO ---
HEIGHT: 5 ft 4 in WEIGHT: 154 lb 0 oz DATE OF STUDY: 03/01/[address]: Rey Duke MD 2-DIMENSIONAL: YES M.MODE: YES DOPPLER: YES COLOR FLOW: YES TDS: NO PORTABLE: NO DEFINITY: NO BUBBLE STUDY: NO DIAGNOSIS: CHEST PAIN CARDIAC HISTORY: CATHERIZATION: NO SURGERY: NO PROSTHETIC VALVE: NO PACEMAKER: NO MEASUREMENTS (cm) DIASTOLIC (NORMALS) SYSTOLIC (NORMALS) IVSd 0.9 (0.6-1.2) LA Diam 2.7 (1.9-4.0) LVEF 69% LVIDd 4.0 (3.5-5.7) LVIDs 2.4 (2.0-3.5) %FS 38% LVPWd 0.9 (0.6-1.2) Ao Diam 2.2 (2.0-3.7) 2 DIMENSIONAL ASSESSMENT: RIGHT ATRIUM: NORMAL LEFT ATRIUM: NORMAL RIGHT VENTRICLE: NORMAL LEFT VENTRICLE: NORMAL TRICUSPID VALVE: NORMAL MITRAL VALVE: NORMAL PULMONIC VALVE: NORMAL AORTIC VALVE: NORMAL PERICARDIAL EFFUSION: NONE AORTIC ROOT: NORMAL LEFT VENTRICULAR WALL MOTION: NORMAL DOPPLER/COLOR FLOW: NORMAL COMMENTS: NORMAL 2D ECHOCARDIOGRAM WITH DOPPLER. NO WALL MOTION ABNORMALITY. TECHNOLOGIST: Abrahan MARTINEZ
--- NOTE | 2020-03-02 08:56 | TREADPHA ---
DX: CHEST PAIN Date of Study: 03/01/2020 Ht: 5' 4 " Wt: 154 lb 0 oz Consulting Physician: PRABHA MEDICATIONS: N/A HISTORY: 45 YEAR OLD FEMALE WITH COMPLAINTS OF CHEST PAIN. NO MEDICAL HISTORY. PHYSICIAL EXAMINATION: RESTING B.P.: 108/66 RESTING H.R.: 79 RESTING EKG: NORMAL SINUS RHYTHM, NON SPECIFIC T WAVE ABNORMALITY. PROTOCOL: LEXISCAN EXERCISE TIME: 3:30 B.P. AT PEAK STRESS: 146/76 IMPRESSION: LEXISCAN INJECTED. CARDIOLITE INJECTED PER PROTOCOL. SEE NUCLEAR MEDICINE REPORT. NO VENTRICULAR TACHYCARDIA. NO SUPRAVENTRICULAR TACHYCARDIA. NO PREMATURE VENTRICULAR COMPLEXES. DENIED CHEST PAIN.
== END 2020-03-01 12:44 | disposition home or self-care (01) ==
LOC: 2ND 16:00
PROVIDERS: ADMIT Internal Medicine; ATTEND Internal Medicine
DX: R07.89 Other chest pain (principal); U07.1 COVID-19; M79.601 Pain in right arm; E03.9 Hypothyroidism, unspecified
CPT/HCPCS: 93005; 93017; 93306; 85025; 36415; 82550; 80061; 85379; 84443; 84484 ×2; 82553; 80053; 71046; 78452; U0002; J2785; A9500; G0379; G0378 ×3

== ENCOUNTER 2020-08-29 12:40 | Emergency (ER) | payer OTHER ==
--- OUTSIDE RECORDS SUMMARY | 2020-08-29 12:43 | XMS REPORT | Continuity of Care Document ---
:1975 Author Organization [facility] Care Team Providers Name Role Phone [employer] Unavailable Un available Problems Problem Status Onset Classification Date Comments Sourc e Date Reported Paresthesia of Active Problem 05/19/2020 [place] [facility] upper extremity [facility] Depression Active Problem 05/19/2020 [facility] Preventative Active Diagnosis 05/19/2020 [place] [facility] Medications Medication Details Route Status Patient Ordering Order Source Instructions Provider Date Mobic 1 tablet Orally Active 15 MG Orally Ignacio 04/06/20 [place] [facility] Once a day 20 [facility] Lexapro 1 tablet Orally Active 10 MG Orally Ignacio [place] [facility] Once a day [facility] Allergies, Adverse Reactions, Alerts Substance Category Reaction Severity Reaction Status Date Comments S ource type Reported N.K.D.A. Adverse Info Not Adverse [place] F am Reaction Available Reaction 0 [facility] Immunizations No Data Provided for This Section Results No Data Provided for This Section Pathology Reports No Data Provided for This Section Diagnostic Reports No Data Provided for This Section Consultation Notes No Data Provided for This Section Discharge Summaries No Data Provided for This Section History and Physicals No Data Provided for This Section Vital Signs Vital Sign Value Date Comments Source Weight 179 04/06/2020 [facility] Height 64 04/06/2020 [facility] Heart Rate 80 04/06/2020 [facility] Diastolic (mm Hg) 78 04/06/2020 [place] [facility] Systolic (mm Hg) 110 04/06/2020 [place] [facility] Encounters No Data Provided for This Section Procedures No Data Provided for This Section Assessment and Plan No Data Provided for This Section Plan of Care No Data Provided for This Section Social History No Data Provided for This Section Family History No Data Provided for This Section Advance Directives No Data Provided for This Section Functional Status No Data Provided for This Section
--- OUTSIDE RECORDS SUMMARY | 2020-08-29 12:43 | XMS REPORT | Continuity of Care Document ---
:1975 Author Organization [facility] t Address [address] [place] [address] Care Team Providers Name Role Phone Unavailable Unavailable Unavailable Payers Payer Name Policy Type Policy Number Effective Date Expiration Date S ource Problems Condition Condition Condition Status Onset Resolution Last Treating Co mments Source Name Details Category Date Date Treatment Clinician Date Paresthesi Problem Active 2020-05-19 M emoria a of upper 02:06:26 l extremity [place] Paresthesi a of upper extremity Active Problem 05/19/2020 [facility] Depression Problem Active 2020-05-19 M emoria 02:06:26 l [place] Depression Active Problem 05/19/2020 [facility] Preventati Diagnosis Active 2020-05-19 [facility] 02:06:26 l care [facility] Preventati ve health care Active Diagnosis 05/19/2020 [facility] Allergies, Adverse Reactions, Alerts Allergy Allergy Status Severity Reaction(s) Onset Inactive Treating Comm ents Source Name Type Date Date Clinician N.K.D.A. N.K.D.A. Active Info Not Geronimo unique Available 8 l 00:00: [place] 00 Medications Ordered Filled Start Stop Current Ordering Indication Dosage Frequency Signature Comments Components Source Medication Medication Date Date Medication? Clinician (SIG) Name Name Lexapro 2020-0 Yes Steven 1 tablet Geronimo unique 05-19 Ignacio l 02:06: [place] Mobic 2019-0 Yes Steven 1 tablet Memori a 8-13 Ignacio l 00:00: [place] 00 Vital Signs Vital Name Observation Time Observation Value Comments Source Weight 2020-04-06 16:15:00 [facility] Height 2020-04-06 16:15:00 [facility] [place] Heart Rate 2020-04-06 16:15:00 [facility] Diastolic (mm Hg) 2020-04-06 16:15:00 [facility] orial [place] Systolic (mm Hg) 2020-04-06 16:15:00 Geronimo rial [place] Procedures This patient has no known procedures. Encounters Start End Encounter Admission Attending Care Care Encounter Source Date/Time Date/Time Type Type Clinicians Facility Department ID 2020-04-06 2020-04-06 [place] [id number] [facility] 11:15:00 11:15:00 Ignacio Pierre II Alyssa dupree II, MD, MD Results Test Description Test Time Test Comments Results Result Comments Source T4 (THYROXINE) 2020-07-11 05:10:00 Test Item Value Reference Range Interpretation Comme nts T4 (THYROXINE) (test code = T4) 7.3 ug/dL 4.5-12.0 Performed At: [facility] [id number] [place], [place] [id number] Attila Ma MD Ph:[phone] ACUTE HEPATITIS [id number] 12:10:00 Test Item Value Reference Range Interpretation Comments AB HEPATITIS A IGM (test NONREACTIVE NONREACTIVE code = HAVMAB) AG HEPATITIS B SURFACE NON REACTIVE NONREACTIVE (test code = HBSAG) HBSAG CONFIRMATORY (test Test not performed NONREACTIVE code = HBSAGC) AB HEPATITIS B CORE IGM NON-REACTIVE NONREACTIVE (test code = HBCMAB) AB HEPATITIS C (test code NONREACTIVE NONREACTIVE = HCVAB) UA RFLX MICR CULT IF [id number] 11:32:00 Test Item Value Reference Range Interpretation Comments UA COLOR (test code = COLU) YELLOW DISCRIPT YELLOW UA APPEARANCE (test code = CLEAR DISCRIPT CLEAR APPU) UA GLUCOSE DIPSTICK (test NEGATIVE mg/dL NEGATIVE code = DGLUU) UA BILIRUBIN DIPSTICK (test NEGATIVE NEGATIVE code = BILU) UA KETONE DIPSTICK (test code NEGATIVE mg/dL NEGATIVE = KETU) UA SPECIFIC GRAVITY (test >=1.030 1.005-1.030 code = SGU) UA BLOOD DIPSTICK (test code TRACE NEGATIVE A = BABITA) UA PH DIPSTICK (test code = 6.0 5.0-9.0 SIERRA) UA PROTEIN DIPSTICK (test NEGATIVE mg/dL NEGATIVE code = PROU) UA UROBILINOGEN DIPSTICK 0.2 mg/dL 0.2-1.0 (test code = URO) UA NITRITE DIPSTICK (test NEGATIVE NEGATIVE code = SARBJIT) UA LEUKOCYTE ESTERASE NEGATIVE NEGATIVE DIPSTICK (test code = LEUU) UA WBC (test code = WBCU) 0-2 #WBC/HPF 0-2 UA RBC (test code = RBCU) 0-2 #RBC/HPF 0-2 UA BACTERIA (test code = OCCASIONAL /HPF NONE-TRACE A BACU) UA SQUAMOUS CELLS (test code OCCASIONAL /LPF NONE-TRACE = SQU) UA MUCUS (test code = MUCU) OCCASIONAL /LPF NONE SEEN A ACUTE HEPATITIS [id number] 11:28:00 Test Item Value Reference Range Interpretation Comments AB HEPATITIS A IGM (test code = NONREACTIVE NONREACTIVE HAVMAB) AG HEPATITIS B SURFACE (test NON REACTIVE NONREACTIVE code = HBSAG) HBSAG CONFIRMATORY (test code = NONREACTIVE HBSAGC) AB HEPATITIS B CORE IGM (test NON-REACTIVE NONREACTIVE code = HBCMAB) AB HEPATITIS C (test code = NONREACTIVE NONREACTIVE HCVAB) LIVER FUNCTION [id number] 11:22:00 Test Item Value Reference Range Interpretation Comments TOTAL PROTEIN (test code = PROT) 7.1 g/dL 6.3-8.3 N ALBUMIN (test code = ALB) 4.4 G/DL 3.5-5.0 N BILIRUBIN TOTAL (test code = BILT) 0.6 mg/dL 0.2-1.0 N BILIRUBIN DIRECT (test code = <0.2 mg/dL 0.0-0.2 N BILD) SGOT/AST (test code = AST) 36 IU/L 10-34 H SGPT/ALT (test code = ALT) 66 U/L 10-36 H ALKALINE PHOSPHATASE (test code = 77 U/L 32-104 N ALKP) T3 [id number] 11:22:00 Test Item Value Reference Range Interpretation Comments T3 FREE (test code = T3F) 3.6 PG/ML 2.0-4.4 N - US ABDOMEN [id number] 11:13:00 [facility] : 1975 Sex: FPatient Name: RUFINO LOZADA Unit No: [id number] EXAMS: CPT CODE: [id number] US ABDOMEN COMPLETE [id number] Dictation location b2 Abdominal ultrasound complete: HISTORY:R94.5-ABNORMAL RESULTS OF LIVER FUNCTION STUDIES COMMENT: Real-time sonographic images of the abdomen reveals a normally distended gallbladder, with no evidence for gallstones, and no gallbladder wall thickening, or pericholecystic fluid. The common duct measures 3 mm with no intra or extrahepatic biliary dilatation. Liver span is 16 cm and spleen span is 17.2 cm. The liver is of slightly increased echogenicity. No focal liver and splenic mass is seen. There is no ascites. The pancreas appears normal with no evidence of mass or pseudocyst.The aorta and inferior vena cava appear unr emarkable. The right kidney measures 10.7 x 3.8 x 4.5 cm and the left kidney measures 10.2 x 5 x 4.1 cm. Cortical thickness is normal on each side. No mass or obstruction ispresent. IMPRESSION: 1. No acute abdominal findings. 2. Slightly fatty liver. at 1113 Reported and signed by: Sera Graham M.D. CC: Esvin Martinez MD Technologist: Whitley Welch Probe: Trscr Dt/Tm: 07/10/2020 (1113) by:[email or web address] Printed Date/Time: 07/10/2020 (1116) Name: RUFINO LOZADA [facility] Phys: Esvin Chow MD [address] : 1975 Age: 45 Sex: [place] [id number] [facility] No: [id number] Loc: KRIS Exam Date: 07/10/2020 Status: REG CLI PH: FAX: PAGE 1 Signed ReportACUTE HEPATITIS [id number] 10:32:00 Test Item Value Reference Range Interpretation Comments AB HEPATITIS A IGM (test code = NONREACTIVE NONREACTIVE HAVMAB) AG HEPATITIS B SURFACE (test NONREACTIVE code = HBSAG) HBSAG CONFIRMATORY (test code = NONREACTIVE HBSAGC) AB HEPATITIS B CORE IGM (test NON-REACTIVE NONREACTIVE code = HBCMAB) AB HEPATITIS C (test code = NONREACTIVE HCVAB) LIVER FUNCTION [id number] 10:16:00 Test Item Value Reference Range Interpretation Comments TOTAL PROTEIN (test code = PROT) 7.1 g/dL 6.3-8.3 N ALBUMIN (test code = ALB) 4.4 G/DL 3.5-5.0 N BILIRUBIN TOTAL (test code = BILT) 0.6 mg/dL 0.2-1.0 N BILIRUBIN DIRECT (test code = <0.2 mg/dL 0.0-0.2 N BILD) SGOT/AST (test code = AST) 36 IU/L 10-34 H SGPT/ALT (test code = ALT) 66 U/L 10-36 H ALKALINE PHOSPHATASE (test code = 77 U/L 32-104 N ALKP) T3 [id number] 10:16:00 Test Item Value Reference Range Interpretation Comments T3 FREE (test code = T3F) PG/ML 2.0-4.4 UA RFLX MICR CULT IF [id number] 09:48:00 Test Item Value Reference Range Interpretation Comments UA COLOR (test code = COLU) YELLOW DISCRIPT YELLOW UA APPEARANCE (test code = CLEAR DISCRIPT CLEAR APPU) UA GLUCOSE DIPSTICK (test NEGATIVE mg/dL NEGATIVE code = DGLUU) UA BILIRUBIN DIPSTICK (test NEGATIVE NEGATIVE code = BILU) UA KETONE DIPSTICK (test code NEGATIVE mg/dL NEGATIVE = KETU) UA SPECIFIC GRAVITY (test >=1.030 1.005-1.030 code = SGU) UA BLOOD DIPSTICK (test code TRACE NEGATIVE A = BABITA) UA PH DIPSTICK (test code = 6.0 5.0-9.0 SIERRA) UA PROTEIN DIPSTICK (test NEGATIVE mg/dL NEGATIVE code = PROU) UA UROBILINOGEN DIPSTICK 0.2 mg/dL 0.2-1.0 (test code = URO) UA NITRITE DIPSTICK (test NEGATIVE NEGATIVE code = SARBJIT) UA LEUKOCYTE ESTERASE NEGATIVE NEGATIVE DIPSTICK (test code = LEUU) UA WBC (test code = WBCU) #WBC/HPF 0-2 UA RBC (test code = RBCU) #RBC/HPF 0-2 UA BACTERIA (test code = /HPF NONE-TRACE BACU) UA SQUAMOUS CELLS (test code /LPF NONE-TRACE = SQU) - XR ABD ACUTE [id number] 10:45:00 [facility] : 1975 Sex: FPatient Name: RUFINO LOZADA Unit No: [id number] EXAMS: CPT CODE: [id number] XR ABD ACUTE W/CHEST [id number] EXAMINATION: - XR ABD ACUTE W/CHEST. LOCATION: W1. HISTORY: R11.0, R11.10. COMPARISON: None. FINDINGS: Three frontal views of chest and abdomen are submitted. Cardiac silhouette/Mediastinal contour: Within normal limits. Lungs: No focal consolidation. No large pleural effusion. Biapical thickening/scarring. 6 mm right upper lobe nodule. Osseous Structures: No acute osseous abnormalities. No pneumoperitoneum. Mild stool throughout colon. Punctate right pelvic phlebolith. IMPRESSION: 6 mm right upper lobe nodule, recommend follow-up based on patient's clinical risk factors and published guidelines. Mild stool throughout colon. at 1045 Reported and signed by: FÉLIX ISSA M.D. CC: Esvin Martinez MD Technologist: Kurtis Mittal brittni: DAP (Gy m2): Air Kerma (mGy): Trscr Dt/Tm: 07/06/2020 (5185) by:[email or web address] Printed Date/Time: 07/06/2020 (4347) Name: RUFINO LOZADA [facility] Phys: 01 - Esvin Martinez MD [address] : 1975 Age: 45 Sex: [place] [address] Loc: P.USN Exam Date: 07/06/2020 Status: REG CLI PH: FAX: PAGE 1 Signed Report
--- NOTE | 2020-08-29 14:21 | RAD REPORT ---
EXAM DESCRIPTION: US - Extremity Venous Uni Ltd - 08/29/2020 2:15 pm CLINICAL HISTORY: PAIN COMPARISON: None. TECHNIQUE: Real-time sonographic evaluation of the left lower extremity deep venous system was perfo rmed. FINDINGS: Normal compressibility, flow augmentation, phasic flow and spontaneous flow are identified in the left lower extremity common femoral, superficial femoral, popliteal and posterior tibial vein s. No intraluminal filling defects seen. IMPRESSION: No DVT in the left lower extremity.
--- NOTE | 2020-08-29 14:28 | ER ---
Nurse's Notes [facility] Name: Amie Reyna Age: 45 yrs Sex: Female : 1975 Arrival Date: 08/29/2020 Time: 12:41 Bed 23 Private MD: Diagnosis: Pain in left lower leg Presentation: 08/29 13:17 Chief complaint: Patient states: i have been having a lot of pain in my LEFT lower leg, tw2 its been off and on for a couple of weeks and last night it got really bad, no redness or swelling. Coronavirus screen: At this time, the client does not indicate any symptoms associated with coronavirus-19. Ebola Screen: Patient denies travel to an Ebola-affected area in the 21 days before illness onset. Initial Sepsis Screen: Does the patient meet any 2 criteria? No. Patient's initial sepsis screen is negative. Does the patient have a suspected source of infection? No. Patient's initial sepsis screen is negative. Risk Assessment: Do you want to hurt yourself or someone else? Patient reports no desire to harm self or others. Onset of symptoms was August 29, 2020. 13:17 Method Of Arrival: Ambulatory tw2 13:17 Acuity: FRENCH 4 tw2 Triage Assessment: 13:20 General: Appears distressed, well groomed, Behavior is calm, cooperative, appropriate tw2 for age. Pain: Complains of pain in lateral aspect of left calf. Historical: - Allergies: 13:18 Codeine; tw2 13:20 hydroxyzine HCl; palpitations; tw2 - Home Meds: 13:20 None [Active]; tw2 - PMHx: 13:20 None; tw2 - PSHx: 13:20 c section; tw2 - Immunization history:: Adult Immunizations. - Social history:: Smoking status: Patient denies any tobacco usage or history of. Screenin:30 Abuse screen: Denies threats or abuse. Denies injuries from another. Nutritional zb screening: No deficits noted. Tuberculosis screening: No symptoms or risk factors identified. Fall Risk None identified. Assessment: 13:30 General: Appears in no apparent distress. comfortable, Behavior is calm, cooperative, zb appropriate for age. Pain: Complains of pain in left leg and lateral aspect of left calf Pain radiates to left thigh Pain currently is 4 out of 10 on a pain scale. Quality of pain is described as aching, throbbing, Pain began 1 day ago. Neuro: Level of Consciousness is awake, alert, obeys commands, Oriented to person, place, time, situation. Cardiovascular: Capillary refill < 3 seconds in bilateral fingers Patient's skin is warm and dry. Respiratory: Airway is patent Respiratory effort is labored, relaxed, Respiratory pattern is regular. GI: Abdomen is flat, distended. : No signs and/or symptoms were reported regarding the genitourinary system. EENT: No signs and/or symptoms were reported regarding the EENT system. Derm: Skin is intact, is healthy with good turgor, Skin is dry, Skin is normal, Skin temperature is warm. Musculoskeletal: Circulation, motion, and sensation intact. Capillary refill < 3 seconds, in bilateral fingers. Range of motion: intact in all extremities. 13:56 Reassessment: pt transported to US. zb 14:06 Reassessment: pt returned from [facility]. zb 14:42 Reassessment: Patient appears in no apparent distress at this time. Patient and/or zb family updated on plan of care and expected duration. Pain level reassessed. Patient is alert, oriented x 3, equal unlabored respirations, skin warm/dry/pink. d/c instructions given. PVU. pt gait steady and even. Vital Signs: 13:17 BP 121 / 78; Pulse 91; Resp 18; Temp 98.1(TE); Pulse Ox 99% on R/A; Weight 78.47 kg tw2 (R); Height 5 ft. 4 in. (162.56 cm); 14:43 BP 120 / 80; Pulse 86; Resp 16; Pulse Ox 99% on R/A; zb 13:17 Body Mass Index 29.70 (78.47 kg, 162.56 cm) tw2 ED Course: 12:41 Patient arrived in ED. ag3 13:18 Triage completed. tw2 13:21 Arm band placed on. tw2 13:26 Robyn Lange RN is Primary Nurse. zb 13:27 Krzysztof Alvarez NP is PHCP. pm1 13:27 Rao Ortiz MD is Attending Physician. pm1 13:30 Patient has correct armband on for positive identification. Bed in low position. Call zb light in reach. 14:15 Extremity Venous Uni Ltd US In Process Unspecified. EDMS 14:43 No provider procedures requiring assistance completed. Patient did not have IV access zb during this emergency room visit. Administered Medications: No medications were administered Outcome: 14:28 Discharge ordered by . pm1 14:43 Discharged to home ambulatory. zb 14:43 Condition: stable 14:43 Discharge instructions given to patient, Instructed on discharge instructions, follow up and referral plans. Demonstrated understanding of instructions, follow-up care. 14:43 Patient left the ED. zb Signatures: Dispatcher [employer] EDMS Krzysztof Alvarez NP MARKETING/SALES PERSON pm1 Liv Auguste RN RN tw2 Kary Tellez ag3 Robyn Lange, RN RN dirk
--- NOTE | 2020-08-29 14:28 | EDPHYS ---
Physician Documentation [facility] Name: Amie Reyna Age: 45 yrs Sex: Female : 1975 Arrival Date: 08/29/2020 Time: 12:41 Bed 23 Private MD: ED Physician Rao Ortiz HPI: 08/29 14:03 This 45 yrs old Female presents to ER via Ambulatory with complaints of Left pm1 Leg Pain. 14:03 The patient presents with pain. The complaints affect the lateral aspect of left calf. pm1 14:04 Context: The problem was sustained at home, resulted from an unknown cause, the patient pm1 can fully bear weight, the patient is able to ambulate, Problem is a result from a previous injury: No. Onset: The symptoms/episode began/occurred 1 week(s) ago. Modifying factors: The symptoms are alleviated by nothing. the symptoms are aggravated by nothing. Associated signs and symptoms: Pertinent negatives fever, numbness, swelling, tingling, chest pain, shortness of breath. Treatment prior to arrival includes: no previous treatment. Severity of symptoms: in the emergency department the symptoms have improved, at its worse last night. The patient has not experienced similar symptoms in the past. The patient has not recently seen a physician. Historical: - Allergies: 13:18 Codeine; tw2 13:20 hydroxyzine HCl; palpitations; tw2 - Home Meds: 13:20 None [Active]; tw2 - PMHx: 13:20 None; tw2 - PSHx: 13:20 c section; tw2 - Immunization history:: Adult Immunizations. - Social history:: Smoking status: Patient denies any tobacco usage or history of. ROS: 14:04 Constitutional: Negative for fever, chills, and weight loss, Cardiovascular: Negative pm1 for chest pain, palpitations, and edema, Respiratory: Negative for shortness of breath, cough, wheezing, and pleuritic chest pain, Back: Negative for injury and pain. 14:04 Skin: Negative for injury, rash, and discoloration. 14:04 Neuro: Negative for headache, weakness, numbness, tingling, and seizure. 14:04 MS/extremity: Positive for pain, of the lateral aspect of left calf, Negative for decreased range of motion, deformity. Exam: 14:04 Constitutional: This is a well developed, well nourished patient who is awake, alert, pm1 and in no acute distress. Head/Face: Normocephalic, atraumatic. 14:04 Back: No spinal tenderness. No costovertebral tenderness. Full range of motion. Skin: Warm, dry with normal turgor. Normal color with no rashes, no lesions, and no evidence of cellulitis. 14:04 Cardiovascular: Exam negative for acute changes, Rate: normal, Rhythm: regular, Pulses: no pulse deficits are appreciated. 14:04 Respiratory: Exam negative for acute changes, respiratory distress, shortness of breath. 14:04 Musculoskeletal/extremity: Extremities: grossly normal except: noted in the lateral aspect of left calf: tenderness, There is no evidence of decreased ROM, deformity, ecchymosis, erythema, swelling, DVT Exam: no swelling, no tenderness, no appreciated bluish discoloration, no erythema, no increased warmth, pain. 14:04 Neuro: Exam negative for acute changes, Orientation: is normal, Mentation: is normal, Motor: is normal, moves all fours, Sensation: is normal, no obvious gross deficits. Vital Signs: 13:17 BP 121 / 78; Pulse 91; Resp 18; Temp 98.1(TE); Pulse Ox 99% on R/A; Weight 78.47 kg tw2 (R); Height 5 ft. 4 in. (162.56 cm); 14:43 BP 120 / 80; Pulse 86; Resp 16; Pulse Ox 99% on R/A; zb 13:17 Body Mass Index 29.70 (78.47 kg, 162.56 cm) tw2 MDM: 13:27 Patient medically screened. pm1 14:07 Data reviewed: vital signs. pm1 14:27 Counseling: I had a detailed discussion with the patient and/or guardian regarding: the pm1 historical points, exam findings, and any diagnostic results supporting the discharge/admit diagnosis, radiology results, the need for outpatient follow up, a family practitioner, to return to the emergency department if symptoms worsen or persist or if there are any questions or concerns that arise at home. 08/29 13:36 Order name: Extremity [employer]ous [employer] ; Complete Time: 14:27 pm1 Administered Medications: No medications were administered Disposition: 08/30 06:54 Co-signature as Attending Physician, Rao Ortiz MD I agree with the assessment and enrico plan of care. Disposition: 08/29/20 14:28 Discharged to Home. Impression: Pain in left lower leg. - Condition is Stable. - Discharge Instructions: Musculoskeletal Pain. - Medication Reconciliation Form, Thank You Letter, Antibiotic Education, Prescription Opioid Use form. - Follow up: Emergency Department; When: As needed; Reason: Worsening of condition. Follow up: Private Physician; When: 2 - 3 days; Reason: Recheck today's complaints, Continuance of care, Re-evaluation by your physician. - Problem is new. - Symptoms have improved. Signatures: Dispatcher [employer] Rao Feng MD MD cha Marinas, Patrick, BUR[employer] MARK[employer] AXLE BUR[employer] MARK[employer] AXLE pm1 Liv Auguste RN RN tw2 Robyn Lange RN RN zb Corrections: (The following items were deleted from the chart) 08/29 14:43 14:28 08/29/2020 14:28 Discharged to Home. Impression: Pain in left lower leg. zb Condition is Stable. Forms are Medication Reconciliation Form, Thank You Letter, Antibiotic Education, Prescription Opioid Use. Follow up: Emergency Department; When: As needed; Reason: Worsening of condition. Follow up: Private Physician; When: 2 - 3 days; Reason: Recheck today's complaints, Continuance of care, Re-evaluation by your physician. Problem is new. Symptoms have improved. pm1
[2020-08-29 16:02] VITALS: BP 120/80; O2SAT 99
== END 2020-08-29 14:43 | disposition home or self-care (01) ==
LOC: ER 12:40
DX: M79.662 Pain in left lower leg (principal); Z88.5 Allergy status to narcotic agent; Z88.8 Allergy status to other drugs, medicaments and biological substances
CPT/HCPCS: 93971; 99283